=== PATIENT | male | born 1955 | race Caucasian/White ===

== ENCOUNTER 2017-12-12 14:34 | Outpatient (REF) | payer MEDICARE, SELFPAY ==
[2017-12-12 20:28] LABS: Anion Gap 9.1 mmol/L (3-11); BUN 16 mg/dL (7-18); CO2 29.9 mmol/L (21.0-32.0); CREATININE 1.75 mg/dL (0.70-1.30); Calcium 9.9 mg/dL (8.5-10.1); Chloride 104 mmol/L (98-107); Estimated GFR 39.82 (mL/min/1.73m2); Glucose 93 mg/dL (70-100); Potassium 4.7 mmol/L (3.5-5.1); Sodium 143 mmol/L (136-145)
== END 2017-12-12 14:54 ==
LOC: NCHCN 14:34
PROVIDERS: PCP Family Medicine; Visit Provider Physician Assistant Medical
DX: N18.1 Chronic kidney disease, stage 1 (principal)
CPT/HCPCS: 80048

== ENCOUNTER 2018-10-08 15:14 | Outpatient (REF) | payer MEDICARE, MEDICAID, SELFPAY ==
[2018-10-08 18:56] LABS: Anion Gap 9.8 mmol/L (3-11); BUN 23 mg/dL (7-18); CO2 26.2 mmol/L (21.0-32.0); CREATININE 1.99 mg/dL (0.70-1.30); Calcium 9.7 mg/dL (8.5-10.1); Chloride 107 mmol/L (98-107); Estimated GFR 34.22 (mL/min/1.73m2); Glucose 90 mg/dL (70-100); Magnesium 1.9 mg/dL (1.8-2.4); Sodium 143 mmol/L (136-145)
== END 2018-10-08 15:34 ==
LOC: NCHCN 15:14
PROVIDERS: PCP Family Medicine; Visit Provider Nurse Practitioner Family
DX: E83.42 Hypomagnesemia (principal); I10 Essential (primary) hypertension
CPT/HCPCS: 80048; 83735

== ENCOUNTER 2019-10-10 15:40 | Outpatient (REF) | payer MEDICARE, MEDICAID, SELFPAY ==
[2019-10-10 19:20] LABS: Abs Immature Grans 0.03 10^3/uL (0.0-0.06); Absolute Basophil Count 0.04 10^3/uL (0.0-0.2); Absolute Eosinophil Count 0.16 10^3/uL (0.0-0.7); Absolute Lymphocyte Count 2.13 10^3/uL (1.2-3.4); Absolute Monocyte Count 0.54 10^3/uL (0.1-0.8); Absolute Neutrophil Count 5.05 10^3/uL (1.2-6.7); Basophils % 0.5; HCT 40.2 % (40.0-50.0); Immature Grans % 0.4; Lymphocytes % 26.8; MCH 31.7 pg (27.0-33.0); MCHC 34.8 % (32.0-36.0); MCV 91.2 fL (80-95); MPV 9.9 fL (8.0-11.0); Monocytes % 6.8; Neutrophils % 63.5; Nucleated RBC 0 %; Platelet Count 234 10^3/uL (130-400); RBC 4.41 10^6/uL (4.36-5.78); RDW 13.5 % (11.8-14.1); RDW-SD 45.2 fL; WBC 7.95 10^3/uL (4.4-10.8)
[2019-10-10 20:01] LABS: ALT 20 U/L (16-63); AST 14 U/L (15-37); Alkaline Phosphatase 104 U/L (46-116); Anion Gap 10.2 mmol/L (3-11); BUN 26 mg/dL (7-18); Bilirubin, Total 0.6 mg/dL (0.2-1.0); CO2 23.8 mmol/L (21.0-32.0); CREATININE 2.51 mg/dL (0.70-1.30); Calcium 9.7 mg/dL (8.5-10.1); Calculated LDL 119 mg/dL (<100); Chloride 105 mmol/L (98-107); Cholesterol 213 mg/dL (<200); Estimated GFR 26.09 (mL/min/1.73m2); Glucose 90 mg/dL (74-106); HDL Cholesterol 39 mg/dL (40-60); Magnesium 1.8 mg/dL (1.8-2.4); Potassium 4.6 mmol/L (3.5-5.1); Sodium 139 mmol/L (136-145); Total Protein 6.6 g/dL (6.4-8.2); Triglyceride 275 mg/dL (<150); Vitamin B12 306 pg/mL (193-986)
== END 2019-10-10 16:00 ==
LOC: NCHCN 15:40
PROVIDERS: PCP Family Medicine; Visit Provider Physician Assistant
DX: I10 Essential (primary) hypertension (principal); E83.42 Hypomagnesemia; G62.9 Polyneuropathy, unspecified
CPT/HCPCS: 80053; 80061; 82607; 83735; 85025

== ENCOUNTER 2019-10-18 14:41 | Outpatient (REF) | payer MEDICARE, MEDICAID, SELFPAY ==
[2019-10-18 19:54] LABS: TSH (W/Ref FT4) 1.14 uIU/mL (0.36-3.74)
== END 2019-10-18 15:01 ==
LOC: NCHCN 14:41
PROVIDERS: PCP Family Medicine; Visit Provider Physician Assistant
DX: I10 Essential (primary) hypertension (principal); M10.00 Idiopathic gout, unspecified site; F17.200 Nicotine dependence, unspecified, uncomplicated; G62.9 Polyneuropathy, unspecified
CPT/HCPCS: 84443

== ENCOUNTER 2019-12-10 01:00 | Outpatient (CLI) | payer MEDICARE, MEDICAID, SELFPAY ==
--- NOTE | 2019-12-10 15:27 | DI.RAD_ITS ---
EXAM: XR CERVICAL SP WARREN TRAUMA 2-3V CLINICAL HISTORY: SPONDYLOLISTHESIS CERVICAL REGION,M43.12, LT ARM BURNING PAIN TECHNIQUE: COMPARISON: No exams were available for comparison FINDINGS: Three views were obtained. There is a mild torticollis to the right. Flexion and extension lateral views show no specific abnormality alignment. There is multilevel disc space narrowing and prominent hypertrophic changes are present throughout th e cervical spine involving the vertebral endplates and facet joints, particularly in the lower cervic al region. IMPRESSION: Degenerative changes as described above are noted on this limited series. RADIATION DOSE DELIVERED: Total DLP
== END 2019-12-10 01:20 ==
PROVIDERS: PCP Family Medicine; Visit Provider Anesthesiology Pain Medicine
DX: M43.12 Spondylolisthesis, cervical region (principal); M79.602 Pain in left arm; S13.4XXA Sprain of ligaments of cervical spine, initial encounter
CPT/HCPCS: 72040

== ENCOUNTER 2020-04-30 16:17 | Outpatient (REF) | payer MEDICARE, MEDICAID, SELFPAY ==
[2020-04-30 18:24] LABS: Anion Gap 7.2 mmol/L (3-11); BUN 28 mg/dL (7-18); CO2 25.8 mmol/L (21.0-32.0); CREATININE 2.4 mg/dL (0.70-1.30); Calcium 9.3 mg/dL (8.5-10.1); Chloride 105 mmol/L (98-107); Estimated GFR 27.48 (mL/min/1.73m2); Glucose 101 mg/dL (74-106); Potassium 4.8 mmol/L (3.5-5.1); Sodium 138 mmol/L (136-145)
== END 2020-04-30 16:18 | disposition home or self-care (01) ==
LOC: NCHCN 16:17
PROVIDERS: PCP Family Medicine; Visit Provider Physician Assistant
DX: I10 Essential (primary) hypertension (principal); N18.1 Chronic kidney disease, stage 1
CPT/HCPCS: 80048; 82043; 82570

== ENCOUNTER 2020-05-05 14:58 | Outpatient (REF) | payer MEDICARE, MEDICAID, SELFPAY ==
[2020-05-05 20:02] LABS: COMMENT (LAB VIEW ONLY) 40.82 mg/dL
[2020-05-05 20:14] LABS: Microalb ug/mg Crea 672.7 ug/mg Cr
== END 2020-05-05 14:59 | disposition home or self-care (01) ==
LOC: NCHCN 14:58
PROVIDERS: PCP Physician Assistant; Visit Provider Physician Assistant
DX: I10 Essential (primary) hypertension (principal); N18.1 Chronic kidney disease, stage 1
CPT/HCPCS: 82043; 82570

== ENCOUNTER 2020-11-24 17:00 | Outpatient (REF) | payer MEDICARE, MEDICAID, SELFPAY ==
[2020-11-24 20:22] LABS: Anion Gap 7.5 mmol/L (3-11); BUN 17 mg/dL (7-18); CO2 28.5 mmol/L (21.0-32.0); CREATININE 2.2 mg/dL (0.70-1.30); Calcium 9.6 mg/dL (8.5-10.1); Chloride 104 mmol/L (98-107); Estimated GFR 30.28 (mL/min/1.73m2); Glucose 99 mg/dL (74-106); Potassium 4.6 mmol/L (3.5-5.1); Sodium 140 mmol/L (136-145)
== END 2020-11-24 17:01 | disposition home or self-care (01) ==
LOC: NCHCN 17:00
PROVIDERS: PCP Physician Assistant; Visit Provider Physician Assistant
DX: I10 Essential (primary) hypertension (principal)
CPT/HCPCS: 80048

== ENCOUNTER → 2021-09-16 14:28 | Outpatient (BNVA) | payer MEDICARE, MEDICAID, SELFPAY | PROVIDERS: PCP Physician Assistant; Referring Provider Physician Assistant; Visit Provider Physical Therapy Assistant | DX: Z86.010 Personal history of colon polyps (principal); Z12.11 Encounter for screening for malignant neoplasm of colon ==

== ENCOUNTER 2021-10-13 07:32 | Day surgery (SDC) | payer MEDICARE, MEDICAID, SELFPAY ==
--- NOTE | 2021-10-13 06:28 | W.ANESPRE ---
General Info Date of Service Date Performed: 10/13/21 Height: 5 ft 6 in Weight: 84.085 kg Body Mass Index (BMI): 29.9 Surgical Procedure: Operation Date: 10/13/21 09:05 Proposed Procedure Side Surgeon mansi Ho MD Meds Allergies and Home Medications Allergies Allergy/AdvReac Type Severity Reaction Status Date / Time Rwmgrev-CYF-HmD Reductase Allergy Severe Anaphylaxsi Unverified 10/13/21 08:07 Inhibitor s [Cupjrfh-Nva-Mxn Reductase Inhibitor] amoxicillin [Amoxicillin] Allergy Intermediate Anaphylaxis Unverified 10/13/21 08:07 Penicillins Allergy Intermediate Anaphylaxis Unverified 10/13/21 08:07 Home Medication Medication Instructions Recorded metoprolol tartrate 50 mg tablet 50 mg PO BID 08/13/12 quetiapine 200 mg tablet 200 mg PO HS 06/09/14 valsartan 40 mg tablet 40 mg PO DAILY 06/09/14 bupropion HCl 200 mg tablet,12 hr 200 mg PO BID 06/11/14 sustained-release (Wellbutrin SR) cyanocobalamin (vitamin B-12) 2,000 mcg PO DAILY 10/21/16 1,000 mcg tablet,extended release (Vitamin B-12 ER) allopurinol 300 mg tablet 300 mg PO DAILY 10/31/16 acetaminophen 500 mg tablet 1,000 mg PO Q6H PRN 06/15/21 (Tylenol Extra Strength) gabapentin 300 mg capsule 600 mg PO HS 06/15/21 sildenafil 25 mg tablet (Viagra) 25 mg PO DAILY PRN 06/15/21 bisacodyl 5 mg tablet,delayed 5 mg PO ONCE #4 tabs 09/16/21 release (Dulcolax (bisacodyl)) polyethylene glycol 3350 17 17 g PO ONCE #238 grams 09/16/21 gram/dose oral powder Current Visit Medications: Current Medications Generic Name Dose Route Start Last Admin Trade Name Freq PRN Reason Stop Dose Admin Ringer's Solution 1,000 mls @ 80 mls/hr 10/13/21 06:00 IV 11/11/21 23:59 INFUSION CRISTI IV Miscellaneous Supplies 1 each 10/13/21 06:00 Iv Access IV 11/11/21 23:59 DIRECTED CRISTI Sodium Chloride 0 ml 10/13/21 06:00 Normal Saline Flush 10 Ml Syr IV 11/11/21 23:59 PRN PRN Sodium Chloride 0 ml 10/13/21 06:00 Normal Saline 10 Ml Vial IJ 11/11/21 23:59 DIRECTED PRN Sterile Water 0 ml 10/13/21 06:00 Water,Injection,Sterile 10 Ml Vial IJ 11/11/21 23:59 DIRECTED PRN PFSH Active Problems Active Problems: Problem Status Onset Code Orthostatic dizziness R42 Alcohol abuse F10.10 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 quit three months ago Chronic kidney disease (CKD) stage G3b/A1, moderately decreased glomerular filtration rate (GFR) between 30-44 mL/min/1.73 square meter and albuminuria creatinine ratio less than 30 mg/g Depression Erectile dysfunction Exudative age-related macular degeneration of both eyes with active choroidal neovascularization Gait abnormality Gout a. on allopurinol Hyperlipidemia Hypertension Hypomagnesemia Hyponatremia (06/11/14) Microalbuminuria Neck pain Neuropathy osteomyeitis, right great toe (06/11/14) Peripheral neuropathy Pernicious anemia Polydipsia (06/11/14) Schizoaffective disorder Spinal stenosis Tobacco dependence in remission Umbilical hernia Surgical History Surgical History Arthroplasty of knee Colonoscopy - [facility] – [place] H/O surgical procedure a. knee arthroscopy Nasal septoplasty Open Carpal Tunnel release Repair of inguinal hernia (03/04/15) right, open Repair of umbilical hernia (11/02/16) toe amputation right great toe Tobacco Smoking/Tobacco Use Status: Current every day Alcohol Alcohol Intake: current Alcohol intake frequency: 0-2 drinks per day Alcohol type: beer Details: Drinks a 6 pack 2-3x/wk. Substance Use Substance use: Never Vital Signs and Lab Results Vital Signs Most Recent Vital Signs in EMR: Temp Pulse Resp BP Pulse Ox 36.5 C 70 17 90/56 L 98 10/13/21 07:52 10/13/21 07:52 10/13/21 07:52 10/13/21 07:52 10/13/21 07:52 Lab Results Blood Type / Crossmatch: No Data to Display Complete Blood Count: No Data to Display Complete Metabolic Panel: No Data to Display Liver Function Panel: No Data to Display Coagulation Panel: No Data to Display Cardiac Panel: No Data to Display Arterial Blood Gas: No Data to Display Venous Blood Gas: No Data to Display Pancreas Panel: No Data to Display Thyroid Panel: No Data to Display Infectious Disease: No Data to Display Blood Cultures: No Data to Display Toxicology Panel: No Data to Display Imaging and Studies Imaging and Studies Study information below may be from another EMR and interpreted by another provider. Please see original notes in EMR for more complete details. Carotid Artery Summary:: 2015: Right 1-39%, left 40-59%. Anesthesia Assessment and Plan Anesthesia History Personal History: No History of Anesthesia Complications Family History: No Family History of Anesthesia Complications Exercise Tolerance Exercise Tolerance: Metabolic Equivalents>4 Pertinent Negatives Pertinent Negatives: No Symptoms of GERD, No Major Cardiovascular Symptoms or Complaints, No Major Pulmonary Symptoms or Complaints and No History of CVA/TIA Cardiac & Pulmonary Exam Cardiac Exam: Normal S1/S2 Heart Sounds Pulmonary Exam: Clear Bilateral Breath Sounds Implantable Cardiac Device Does patient have a Pacemaker or an ICD?: No Airway Exam Known Difficult Airway: No Mallampati Class: 3 Mouth Opening: Normal (> 3cm) Thyromental Distance: Less than 3 cm Facial Hair: Full [place] Neck Range of Motion: Full ROM Neck Circumference: Normal Teeth Condition: Edentulous ASA Classification ASA Score: ASA 3 Emergency Case?: No NPO Status NPO Status: NPO Clears >2 hours, Solids >8 hours Anesthesia Plan Resuscitation Status: Full Code Anesthesia Technique: General Anesthesia Airway Planned: Natural Airway Monitors Used: Standard Monitors Preoperative Comments:: 66 yo male for screening colo. sig PMHx: CKD, spinal stenosis, HTN (metoprolol/valsartan), smoker. hx of EtOH abuse. Previous Anes: LMA 4
--- NOTE | 2021-10-13 06:49 | W.COLOREPORT ---
Colonoscopy Report Date of procedure: 10/13/21 Pre-op diagnosis general: Colon Cancer Screening/ Hx of polyps Post-op diagnosis procedure note: other (polyps) Procedure: Colonoscopy with polypectomy Surgeon: Kirsten Ho Anesthesia Type: General:No Airway Estimated blood loss (mL): 3 Pathology: other (ascending polyp, sigmoid polyp) Complications: None Disposition: same day Indications: The patient is here for Colonoscopy pre-op.?His last screening was in 2013,? with recommended follow-up in 7 years due to sessile serrated polyps..??He has no family history of colon cancer. He has not had any bowel habit changes. -Discussed colonoscopy bowel prep as well as the procedure. Discussed possible complications of the procedure to include bleeding, pain, perforation, missed small lesion/polyp, sore throat, aspiration and adverse reaction to the medications. Questions were answered to patient?s satisfaction. No guarantees were implied or given. Prep: Miralax/Dulcolax Procedure Start Time: 10:04 Procedure End Time: 10:48 Retraction Time: 24 minutes Findings: 2 polyps inadequate prep Procedure Description: After informed consent was obtained the patient was taken to the procedure room and placed in a left decubitous position. Monitors were applied and a time out was done. The patients name, date of , procedure, allergies to medications and metal in their body was reviewed. The patient was then sedated. Once sedated and comfortable a rectal exam was done. External exam was normal. Internal exam revealed a normal sphincter tone and no palpable masses. The prostate felt smooth and slightly enlarged. The scope was then introduced and retro-flexed. No internal hemorrhoids, polyps or masses were identified on retro-flexion. The scope was then advanced to the cecum with some difficulty. The ileocecal vlave and appendiceal orifice were identified. The prep was inadequate. There was a lot of corn obscuring about half the colon. The scope was then slowly retracted over 24 minutes back into the rectum. Polyps were removed with a snare in the ascending colon and with forceps in the sigmoid colon. There was no diverticulosis noted. The scope was removed and the patient was woken up and taken back to Same day surgery in stable condition. The patient tolerated the procedure well and there were no immediate complications.
--- NOTE | 2021-10-13 06:51 | PDOC.DSDIS_ITS ---
Discharge Plan Disposition Patient Disposition: HOME Condition: Good Discharge Details Reason For Visit: colonoscopy Attending Provider: Kirsten Ho Primary Care Provider: Marilou Tang Home Meds and New Rx's Prescriptions: Continued quetiapine 200 MG tablet 200 mg PO HS valsartan 40 MG tablet 40 mg PO DAILY cyanocobalamin (vitamin B-12) [Vitamin B-12] 1,000 MCG tablet extended release 2,000 mcg PO DAILY acetaminophen [Tylenol Extra Strength] 500 mg tablet 1,000 mg PO Q6H PRN sildenafil [Viagra] 25 mg tablet 25 mg PO DAILY PRN Rx Instructions: administer 30 minutes to 4 hours before activity gabapentin 300 mg capsule 600 mg PO HS metoprolol tartrate 50 MG tablet 50 mg PO BID bupropion HCl [Wellbutrin SR] 200 MG tablet extended release 12 hr 200 mg PO BID allopurinol 300 MG tablet 300 mg PO DAILY Discontinued bisacodyl [Dulcolax (bisacodyl)] 5 mg tablet,delayed release (DR/EC) 5 mg PO ONCE Qty: 4 0RF Rx Instructions: Take according to provider's instructions for colonoscopy prep. polyethylene glycol 3350 17 gram/dose powder 17 g PO ONCE Qty: 238 0RF Rx Instructions: To be taken as directed by prescriber's office for colonoscopy prep. Discharge Instructions Instructions: Colorectal Polyps (DC) Additional Instructions: Findings: 2 polyps Prep was marginal Follow up: will depend on pathology results Please call if you develop: fevers >101.5 Nausea or Vomiting Abdominal pain that is not transient Rectal bleeding that is more then a tbsp A hard abdomen and inability to pass gas DAY SURGERY UNIT POST ENDOSCOPY INSTRUCTIONS Instructions for everyone who is given Anesthesia: For your safety, please do the following for the next 24 Hours: a. Do not drive or operate dangerous equipment b. Do not drink alcohol beverages or use any recreational drugs for the first 24 hours or while taking pain medications. The medications in your body may have a reaction that can be dangerous. c. Do not make any important decisions or sign any important papers 1. Generally there are no restrictions on your activity after a day or so has gone by, but you may feel a bit fatigued for a few days. 2. After you arrive home you may have a light meal and return to a normal diet as you can tolerate it without feeling sick to your stomach. 3. After surgery, you may feel pain or discomfort. This should be only transient , but if it persists please contact your doctor. 4. If there are any questions regarding the findings of your procedure, please feel free to contact your doctor. 6. If you are unable to contact your doctor with a problem, contact the hospital at [phone]. 7. Continue all your regular medications unless directed otherwise. I understand the above instructions and have no questions. Signature of Patient or Responsible Adult Escort Date/Time Name of Responsible Adult Escort Signature of Nurse Date/Time Activity:: Activity as Tolerated Diet:: As Tolerated Discharge Orders Discharge Orders: Discharge Order (Routine); Ordered 10/13/21 Ordered By: Kirsten Ho
[2021-10-13 07:52] VITALS: BP 90/56; PULSE 70; RESP 17; TEMP 36.5; O2SAT 98
[2021-10-13] MEDS: Lactated Ringers 1,000 ML 80 ML IV (08:17)
[2021-10-13 10:02] VITALS: BMI 29.9
--- NOTE | 2021-10-13 10:26 | BOWEL_PTH ---
PATIENT: Canelo Tadeo LOC: [facility] U#:[id number] AGE/SX: 66/M ROOM: RE10/13/[address]: Kirsten Ho MD : [id number] BED: DIS: 10/13/2021 SPEC #: [id number] RECD: 10/13/21 13:13 STATUS: ANDREW REQ #: [id number] PHAN: 10/13/21 10:[address]: Kirsten Ho DEPT: Surgical Specimen RECD BY: Christina Roy ENTERED: 10/13/21 13:14 SP TYPE: Bowel OTHR DR: Marilou Tang Tissues: 1 - BIOPSY BOWEL 2 - BIOPSY BOWEL Procedures: GROSS AND MICRO LEVEL 4 Comments: [id number]
[2021-10-13 10:59] VITALS: BP 95/69; PULSE 70; RESP 16; TEMP 36.5; O2SAT 96
[2021-10-13 11:21] VITALS: BP 114/69; PULSE 66; RESP 17; TEMP 36.6; O2SAT 97
--- NOTE | 2021-10-13 11:46 | W.ANESPOSTOP ---
Postoperative Evaluation Date, Time and Location Date Performed: 10/13/21 Time Performed: 11:46 Patient Location: Day Surgery Unit Vital Signs Most Recent Imported Vital Signs: Most Recent Vital Signs Temp Pulse Resp BP Pulse Ox 36.6 C 66 17 114/69 97 10/13/21 11:21 10/13/21 11:21 10/13/21 11:21 10/13/21 11:21 10/13/21 11:21 Pain Score Most Recent Pain Score: Most Recent Pain Score Pain Level 0 10/13/21 11:21 Assessment Mental Status: Awake (Alert & Oriented to Patient Baseline) Airway and Respiratory Function: Patent airway with normal (patient baseline) respiratory exam Cardiovascular Function: Hemodynamically Stable Hydration Status: Adequately Hydrated Nausea & Vomiting: No Nausea or Vomiting Pain: Pt. Denies Any Pain Peripheral Nerve Block: Patient did not receive a nerve block
== END 2021-10-13 12:21 | disposition home or self-care (01) ==
PROVIDERS: PCP Physician Assistant; Visit Provider Surgery
PROC: 0DJD8ZZ Inspection of Lower Intestinal Tract, Via Natural or Artificial Opening Endoscopic (ICD-10-PCS; CPT 45378; principal; 2021-10-13 09:00)
DX: Z12.11 Encounter for screening for malignant neoplasm of colon (principal); K63.5 Polyp of colon; Z86.010 Personal history of colon polyps
CPT/HCPCS: 45385; 45380; 88305

== ENCOUNTER 2021-11-25 16:53 | Outpatient (REF) | payer MEDICARE, MEDICAID, SELFPAY ==
[2021-11-25 20:13] LABS: Abs Immature Grans 0.03 10^3/uL (0.0-0.06); Absolute Basophil Count 0.03 10^3/uL (0.0-0.2); Absolute Eosinophil Count 0.13 10^3/uL (0.0-0.7); Absolute Lymphocyte Count 2.18 10^3/uL (1.2-3.4); Absolute Monocyte Count 0.49 10^3/uL (0.1-0.8); Absolute Neutrophil Count 4.97 10^3/uL (1.2-6.7); Basophils % 0.4; Eosinophils % 1.7; HCT 40.5 % (40.0-50.0); HGB 13.5 g/dL (13.5-17.5); Immature Grans % 0.4; Lymphocytes % 27.8; MCH 32.5 pg (27.0-33.0); MCHC 33.3 % (32.0-36.0); MCV 97 fL (80-95); MPV 10.2 fL (8.0-11.0); Monocytes % 6.3; Neutrophils % 63.4; Platelet Count 176 10^3/uL (130-400); RBC 4.16 10^6/uL (4.36-5.78); RDW 13.2 % (11.8-14.1); RDW-SD 47.3 fL; WBC 7.83 10^3/uL (4.4-10.8)
[2021-11-25 20:32] LABS: ALT 21 U/L (16-63); AST 20 U/L (15-37); Albumin 3.8 g/dL (3.4-5.0); Alkaline Phosphatase 95 U/L (46-116); Anion Gap 10.3 mmol/L (3-11); BUN 39 mg/dL (7-18); Bilirubin, Total 0.4 mg/dL (0.2-1.0); CO2 25.7 mmol/L (21.0-32.0); CREATININE 2.6 mg/dL (0.70-1.30); Calcium 10.4 mg/dL (8.5-10.1); Chloride 104 mmol/L (98-107); Estimated GFR 26.54 (mL/min/1.73m2); Glucose 135 mg/dL (74-106); LDL CHOLESTEROL 150 mg/dL (<100); Potassium 4.4 mmol/L (3.5-5.1); Sodium 140 mmol/L (136-145); TSH (W/Ref FT4) 1.96 uIU/mL (0.36-3.74); Total Protein 7.3 g/dL (6.4-8.2)
== END 2021-11-25 16:54 | disposition home or self-care (01) ==
LOC: NCHCN 16:53
PROVIDERS: PCP Physician Assistant; Visit Provider Physician Assistant
DX: I10 Essential (primary) hypertension (principal); F25.9 Schizoaffective disorder, unspecified
CPT/HCPCS: 80053; 83721; 84443; 85025

== ENCOUNTER 2022-06-15 15:21 | Outpatient (REF) | payer MEDICARE, MEDICAID, SELFPAY ==
[2022-06-15 20:28] LABS: ALT 21 U/L (16-63); AST 19 U/L (15-37); Albumin 3.8 g/dL (3.4-5.0); Alkaline Phosphatase 119 U/L (46-116); Anion Gap 8.1 mmol/L (3-11); BUN 26 mg/dL (7-18); Bilirubin, Total 0.5 mg/dL (0.2-1.0); CO2 22.9 mmol/L (21.0-32.0); CREATININE 2.4 mg/dL (0.70-1.30); Calcium 9.4 mg/dL (8.5-10.1); Calculated LDL 136 mg/dL (<100); Chloride 103 mmol/L (98-107); Cholesterol 231 mg/dL (<200); Estimated GFR 29.21 (mL/min/1.73m2); Glucose 92 mg/dL (74-106); HDL Cholesterol 47 mg/dL (40-60); Potassium 4.8 mmol/L (3.5-5.1); Sodium 134 mmol/L (136-145); Total Protein 7.3 g/dL (6.4-8.2); Triglyceride 241 mg/dL (<150)
== END 2022-06-15 15:22 | disposition home or self-care (01) ==
LOC: NCHCN 15:21
PROVIDERS: PCP Physician Assistant; Visit Provider Physician Assistant
DX: I10 Essential (primary) hypertension (principal); R79.89 Other specified abnormal findings of blood chemistry; E78.5 Hyperlipidemia, unspecified; F25.8 Other schizoaffective disorders
CPT/HCPCS: 80053; 80061; 83036

== ENCOUNTER 2022-09-15 15:39 | Outpatient (REF) | payer MEDICARE, MEDICAID, SELFPAY ==
[2022-09-15 20:06] LABS: Anion Gap 8.5 mmol/L (3-11); BUN 22 mg/dL (7-18); CO2 26.5 mmol/L (21.0-32.0); CREATININE 2.4 mg/dL (0.70-1.30); Calcium 9.6 mg/dL (8.5-10.1); Chloride 107 mmol/L (98-107); Estimated GFR 29.03 (mL/min/1.73m2); Glucose 110 mg/dL (74-106); Potassium 4.5 mmol/L (3.5-5.1); Sodium 142 mmol/L (136-145)
[2022-09-15 20:41] LABS: Uric Acid 3.4 mg/dL (3.5-7.2)
[2022-09-19 15:31] LABS: Albumin 62.3 % (55.8-66.1); Albumin g/dL 4.2 g/dL (3.6-5.2); Alpha 1 g/dL 0.37 g/dL (0.15-0.40); Alpha 2 g/dL 0.71 g/dL (0.50-1.00); Beta g/dL 0.73 g/dL (0.60-1.20); Comment (See Note); Gamma g/dL 0.76 g/dL (0.60-1.60); Total Protein 6.8 g/dL (6.3-8.2)
[2022-09-20 15:27] LABS: Immunotyping, Serum (See Note)
== END 2022-09-15 15:40 | disposition home or self-care (01) ==
LOC: NCHCN 15:39
PROVIDERS: PCP Physician Assistant; Visit Provider Physician Assistant
DX: N18.4 Chronic kidney disease, stage 4 (severe) (principal); M10.00 Idiopathic gout, unspecified site
CPT/HCPCS: 80048; 84165; 84550; 86320

== ENCOUNTER 2023-10-19 18:58 | Outpatient (REF) | payer MEDICARE, MEDICAID, SELFPAY ==
[2023-10-19 19:26] LABS: Abs Immature Grans 0.02 10^3/uL (0.0-0.06); Absolute Basophil Count 0.03 10^3/uL (0.0-0.2); Absolute Eosinophil Count 0.14 10^3/uL (0.0-0.7); Absolute Lymphocyte Count 1.98 10^3/uL (1.2-3.4); Absolute Monocyte Count 0.52 10^3/uL (0.1-0.8); Absolute Neutrophil Count 3.96 10^3/uL (1.2-6.7); Basophils % 0.5 %; Eosinophils % 2.1 %; HCT 40.7 % (40.0-50.0); HGB 14.4 g/dL (13.5-17.5); Immature Grans % 0.3 %; Lymphocytes % 29.8 %; MCH 33.5 pg (27.0-33.0); MCHC 35.4 % (32.0-36.0); MCV 95 fL (80-95); MPV 9.3 fL (8.0-11.0); Monocytes % 7.8 %; Neutrophils % 59.5 %; Platelet Count 184 10^3/uL (130-400); RDW 12.6 % (11.8-14.1); RDW-SD 43.7 fL; WBC 6.65 10^3/uL (4.4-10.8)
[2023-10-19 20:02] LABS: ALT 15 U/L (16-63); AST 16 U/L (15-37); Albumin 3.7 g/dL (3.4-5.0); Alkaline Phosphatase 110 U/L (46-116); Anion Gap 12.2 mmol/L (3-11); BUN 17 mg/dL (7-18); Bilirubin, Total 0.77 mg/dL (0.2-1.0); CO2 22.8 mmol/L (21.0-32.0); CREATININE 2.2 mg/dL (0.70-1.30); Calcium 9.2 mg/dL (8.5-10.1); Chloride 98 mmol/L (98-107); Estimated GFR 32.03 (mL/min/1.73m2); Glucose 84 mg/dL (74-106); Magnesium 1.8 mg/dL (1.8-2.4); Potassium 4.5 mmol/L (3.5-5.1); Sodium 133 mmol/L (136-145); Total Protein 6.9 g/dL (6.4-8.2); Uric Acid 5.2 mg/dL (3.5-7.2)
[2023-10-23 13:19] LABS: Hepatitis C Ab w Rflx HCV PCR Negative (Negative)
== END 2023-10-19 18:59 | disposition home or self-care (01) ==
LOC: NCHCN 18:58
PROVIDERS: PCP Physician Assistant; Visit Provider Physician Assistant
DX: N18.4 Chronic kidney disease, stage 4 (severe) (principal)
CPT/HCPCS: 80053; 86803; 83735; 84550; 85025

== ENCOUNTER 2024-01-31 19:08 | Outpatient (REF) | payer MEDICARE, MEDICAID, SELFPAY ==
[2024-01-31 20:11] LABS: Vitamin D 25 Total 41.7 ng/mL (30-100)
== END 2024-01-31 19:09 | disposition home or self-care (01) ==
LOC: NCHCN 19:08
PROVIDERS: PCP Physician Assistant; Visit Provider Physician Assistant
DX: N18.4 Chronic kidney disease, stage 4 (severe) (principal)
CPT/HCPCS: 82306

== ENCOUNTER 2024-05-08 16:06 | Outpatient (REF) | payer MEDICARE, MEDICAID, SELFPAY ==
[2024-05-08 19:49] LABS: Abs Immature Grans 0.01 10^3/uL (0.0-0.06); Absolute Basophil Count 0.02 10^3/uL (0.0-0.2); Absolute Eosinophil Count 0.13 10^3/uL (0.0-0.7); Absolute Monocyte Count 0.42 10^3/uL (0.1-0.8); Absolute Neutrophil Count 3.92 10^3/uL (1.2-6.7); Basophils % 0.3 %; Eosinophils % 2.1 %; HCT 40.4 % (40.0-50.0); HGB 13.7 g/dL (13.5-17.5); Immature Grans % 0.2 %; Lymphocytes % 28.6 %; MCH 32.1 pg (27.0-33.0); MCHC 33.9 % (32.0-36.0); MCV 95 fL (80-95); MPV 10.2 fL (8.0-11.0); Monocytes % 6.7 %; Neutrophils % 62.1 %; Platelet Count 217 10^3/uL (130-400); RBC 4.27 10^6/uL (4.36-5.78); RDW 12.8 % (11.8-14.1); RDW-SD 44.2 fL
[2024-05-08 20:05] LABS: ALT 18 U/L (16-63); AST 14 U/L (15-37); Albumin 3.7 g/dL (3.4-5.0); Alkaline Phosphatase 118 U/L (46-116); Anion Gap 6.1 mmol/L (3-11); BUN 28 mg/dL (7-18); Bilirubin, Total 0.42 mg/dL (0.2-1.0); CO2 28.9 mmol/L (21.0-32.0); CREATININE 3.5 mg/dL (0.70-1.30); Calcium 9.6 mg/dL (8.5-10.1); Chloride 107 mmol/L (98-107); Estimated GFR 18.35 (mL/min/1.73m2); Glucose 93 mg/dL (74-106); PHOSPHORUS 3.4 mg/dL (2.6-4.7); Potassium 4.9 mmol/L (3.5-5.1); Sodium 142 mmol/L (136-145); Uric Acid 5.1 mg/dL (3.5-7.2)
[2024-05-08 20:10] LABS: Bilirubin Negative (Negative); Blood Negative (Negative); Clarity Clear (Clear); Glucose Negative (Negative); Ketones Negative (Negative); Leukocyte Esterase Negative (Negative); Nitrite Negative (Negative); Specific Gravity 1.015 (1.005-1.025); Urobilinogen 0.2 mg/dL (Up to 0.2); pH 5.5 (5-8)
[2024-05-08 20:18] LABS: Bacteria Negative HPF (Negative); C & S Indicated? No; Casts Negative LPF (Negative); Crystals Negative HPF (Negative); Epithelial Cells Negative HPF (Negative); Mucus Negative (Negative); RBC Negative HPF (0-2); WBC Negative HPF (0-5)
[2024-05-08 20:29] LABS: COMMENT (LAB VIEW ONLY) 71.36 mg/dL; PROTEIN 76.4 mg/dL; Prot/Crea Ur Ratio 1.07
== END 2024-05-08 16:07 | disposition home or self-care (01) ==
LOC: NCHCN 16:06
PROVIDERS: PCP Physician Assistant; Visit Provider Physician Assistant
DX: N18.4 Chronic kidney disease, stage 4 (severe) (principal); M10.00 Idiopathic gout, unspecified site
CPT/HCPCS: 80053; 81003; 81015; 82565; 83970; 84100; 84156; 84550; 85025

== ENCOUNTER 2024-09-25 16:23 | Outpatient (REF) | payer MEDICARE, MEDICAID, SELFPAY ==
[2024-09-25 21:00] LABS: PROTEIN 47.3 mg/dL; Prot/Crea Ur Ratio 1.10
[2024-09-25 21:54] LABS: Anion Gap 8.1 mmol/L (3-11); BUN 31 mg/dL (7-18); CO2 26.9 mmol/L (21.0-32.0); Calcium 9.5 mg/dL (8.5-10.1); Chloride 99 mmol/L (98-107); Estimated GFR 27.30 (mL/min/1.73m2); Glucose 93 mg/dL (74-106); Potassium 4.7 mmol/L (3.5-5.1); Sodium 134 mmol/L (136-145); Vitamin D 25 Total 47 ng/mL (30-100)
== END 2024-09-25 16:24 | disposition home or self-care (01) ==
LOC: NCHCN 16:23
PROVIDERS: PCP Physician Assistant; Visit Provider Physician Assistant
DX: N18.4 Chronic kidney disease, stage 4 (severe) (principal)
CPT/HCPCS: 80048; 82306; 82565; 83970; 84156

== ENCOUNTER 2024-11-08 15:10 | Outpatient (REF) | payer MEDICARE, MEDICAID, SELFPAY ==
[2024-11-08 19:29] LABS: Anion Gap 7.7 mmol/L (3-11); BUN 41 mg/dL (7-18); CO2 27.3 mmol/L (21.0-32.0); Calcium 10.1 mg/dL (8.5-10.1); Chloride 108 mmol/L (98-107); Estimated GFR 19.57 (mL/min/1.73m2); Glucose 102 mg/dL (74-106); Potassium 4.7 mmol/L (3.5-5.1); Sodium 143 mmol/L (136-145)
== END 2024-11-08 15:11 | disposition home or self-care (01) ==
LOC: NCHCN 15:10
PROVIDERS: PCP Physician Assistant; Visit Provider Physician Assistant
DX: N18.4 Chronic kidney disease, stage 4 (severe) (principal)
CPT/HCPCS: 80048